=== PATIENT | female | born 2000 | race Caucasian/White ===

== ENCOUNTER 2018-11-19 02:04 | Outpatient (CLI) | payer OTHER ==
[2018-11-19 03:36] VITALS: BP 134/82
[2018-11-19] MEDS ORDERED: VISTARIL PO PRN (04:27)
== END 2018-11-19 04:40 | disposition home or self-care (01) ==
LOC: EDBD → TRG 02:04
PROVIDERS: ATTEND Obstetrics & Gynecology
DX: O47.1 False labor at or after 37 completed weeks of gestation (principal); Z3A.39 39 weeks gestation of pregnancy
CPT/HCPCS: 59025; Q0177

== ENCOUNTER 2018-11-19 09:36 | Inpatient (IN) | payer OTHER ==
[2018-11-19] MEDS ORDERED: LACTATED RINGERS 1,000 ML IV SCH ×2 (11:00→12:00)
[2018-11-19 11:06] LABS: Hematocrit 31.2 % (30.3-42.9); Hemoglobin 10.5 gm/dl (10.1-14.3); Mean Corpuscular HGB Conc 34 % (30-34); Mean Corpuscular Volume 77 fl (79-97); Platelet Count 188 K/mm3 (140-440); Red Blood Count 4.03 M/mm3 (3.65-5.03); Red Cell Distribution Width 14.2 % (13.2-15.2)
[2018-11-19 11:30] LABS: Alanine Aminotransferase 12 units/L (7-56); Uric Acid 4.6 mg/dL (3.5-7.6)
[2018-11-19 11:51] LABS: Hematocrit 31.5 % (30.3-42.9); Hemoglobin 10.6 gm/dl (10.1-14.3); Mean Corpuscular HGB Conc 34 % (30-34); Mean Corpuscular Volume 78 fl (79-97); Platelet Count 197 K/mm3 (140-440); Red Blood Count 4.06 M/mm3 (3.65-5.03); Red Cell Distribution Width 14.3 % (13.2-15.2)
[2018-11-19] MEDS ORDERED: XYLOCAINE 2% INFILTRATI ONE (11:55)
[2018-11-19] MEDS ORDERED: MINERAL OIL PO PRN (11:55)
[2018-11-19] MEDS ORDERED: SUBLIMAZE IV PRN (11:55)
[2018-11-19] MEDS ORDERED: AMPICILLIN/NS 2 GM/100 ML 2 GM/100 ML BAG IV ONE (11:55)
[2018-11-19] MEDS ORDERED: BRETHINE SUB-Q PRN (11:55)
[2018-11-19] MEDS ORDERED: ZOFRAN IV PRN (11:55)
[2018-11-19] MEDS ORDERED: PITOCin/NS 20 UNIT/1000ML DRIP 20 UNITS/1,000 ML BAG IV SCH ×2 (12:00→19:52)
--- NOTE | 2018-11-19 12:02 | History and Physical Report ---
History of Present Illness Date of examination: 11/19/18 Date of admission: 11/19/18 10:23 Chief complaint: Laboring @ term History of present illness: EDC Calculations by LMP: 11/24/2018 Past History : 1 Term Births: 0 Premature Births: 0 Living Children: 0 Para: 0 Mult. Births: 0 Prev : 0 Aborta: 0 Elect. Ab: 0 Spont. Ab: 0 Ectopics: 0 Past Medical History: Asthma Past Surgical History: Tonsillectomy Family History Summary: Other family member - Has No Family History of Ovarvian Cancer - Entered On: 10/04/2018 Other family member - Has No Family History of Colon Cancer - Entered On: 10/04/2018 Other family member - Has Family History of Hyperlipidemia - Entered On: 10/04/2018 Other family member - Has Family History of Diabetes - Entered On: 10/04/2018 Other family member - Has Family History Breast Cancer - Entered On: 10/04/2018 Social History: Marital Status: single Children: Occupation: Risk Factors: Smoked Tobacco Use: Never smoker Drug use: no HIV high-risk behavior: low risk Alcohol use: no Past Medical History Surgery (Non-assistant kitchen manager): Tonsillectomy Abnormal PAP: negative Uterine Anomaly: negative Social Hx: Marital Status: single Children: Occupation: Infection History Hx of STD: none HIV Risk Eval: low risk Hepatitis B Risk Eval: low risk Personal hx. of genital herpes: no Genetic History Congenital Heart Defect: Mom: no Nathan Disease: Mom: no Thalassemia Mom: no Neural Tube Defect Mom: no Down's Syndrome Mom: no Himanshu-Sachs Mom: no Sickle Cell Disease/Trait Mom: no Hemophilia Mom: no Muscular Dystrophy Mom: no Cystic Fibrosis Mom: no Hartley Chorea Mom: no Mental Retardation Mom: no Fragile X Mom: no Other Genetic/Chromosomal Disorder Mom: no Child w/other defect Mom: no Active Medications (reviewed today): ALBUTEROL SULFATE 1.25 MG/3ML INHALATION NEBULIZATION SOLUTION (ALBUTEROL SULFATE) ALBUTEROL SULFATE NEBULIZATION SOLUTION (ALBUTEROL SULFATE NEBU) Current Allergies (reviewed today): No known allergies Past History Past Medical History: other (see HPI) Past Surgical History: other (see HPI) TRAPPER ANIMAL History: other (see HPi) Family/Genetic History: other (see HPI) - Obstetrical History Expected Date of Delivery: 11/24/18 Actual Gestation: 39 Week(s) 2 Day(s) : 1 Para: 0 Hx # Term Pregnancies: 0 Number of Pregnancies: 0 Spontaneous Abortions: 0 Induced : 0 Number of Living Children: 0 Medications and Allergies Allergies Allergy/AdvReac Type Severity Reaction Status Date / Time No Known Allergies Allergy Verified 11/19/18 03:40 Active Meds: Active Medications Ephedrine Sulfate (Ephedrine Sulfate) 10 mg IV Q2M PRN PRN Reason: Hypotension Lactated Ringer's (Lactated Ringers) 1,000 mls @ 150 mls/hr IV DIRECT DENILSON Oxytocin/Sodium Chloride (Pitocin/Ns 20 Unit/1000ml Drip) 20 units in 1,000 mls @ 125 mls/hr IV DIRECT EDNILSON Ampicillin Sodium (Ampicillin/Ns 1 Gm/50 Ml) 1 gm in 50 mls @ 100 mls/hr IV Q4HR DENILSON; Protocol Ampicillin Sodium (Ampicillin/Ns 2 Gm/100 Ml) 2 gm in 100 mls @ 100 mls/hr IV ONCE ONE; Protocol Stop: 11/19/18 12:54 Lidocaine (Xylocaine 2%) 20 ml INFILTRATI ONCE ONE Stop: 11/19/18 11:56 Mineral Oil (Mineral Oil) 30 ml PO QHS PRN PRN Reason: Constipation Terbutaline Sulfate (Brethine) 0.25 mg SUB-Q ONCE PRN PRN Reason: Hyperstimulation/Hypertonicity Review of Systems All systems: negative - Vital Signs Vital signs: Vital Signs Pulse BP Pulse Ox 122 H 157/89 98 11/19/18 09:49 11/19/18 09:49 11/19/18 09:49 Temp Pulse Resp BP Pulse Ox 102 H 115/75 92 11/19/18 11:30 11/19/18 11:30 11/19/18 10:18 - Physical Exam Breasts: Positive: normal Cardiovascular: Regular rate Lungs: Positive: Clear to auscultation, Normal air movement Abdomen: Positive: normal appearance, soft Genitourinary (Female): Positive: normal external genitalia, normal perenium Vulva: both: normal Vagina: Positive: normal moisture Uterus: Positive: normal size Anus/Rectum: Positive: normal perianal skin Extremities: Positive: normal Deep Tendon Reflex Grade: Normal +2 - Obstetrical FHR: auscultation normal, category 1 Uterine Contraction Monitor Mode: External Cervical Dilatation: 6 (per RN) Uterine Contraction Pattern: Regular Uterine Tone Measurement Phase: Contraction Uterine Contraction Intensity: Moderate Results Result Diagrams: 11/19/18 Unknown 11/19/18 10:47 Abnormal lab results 11/19/18 11/19/18 11/19/18 Range/Units 10:47 10:47 Unknown WBC 14.9 H 15.5 H (4.5-11.0) K/mm3 MCV 77 L 78 L (79-97) fl MCH 26 L 26 L (28-32) pg Creatinine 0.6 L (0.7-1.2) mg/dL Lactate Dehydrogenase 212 H (91-180) units/L All other labs normal. Assessment and Plan 18 y/o @ 39+1 in active labor (2cms in triage now 6cms), GBS +, anticipate - Patient Problems (1) 39 weeks gestation of Current Visit: Yes Status: Acute (2) Active labor at term Current Visit: Yes Status: Acute Plan to address problem: Admission orders in EMR IVF bolus for epidural Anticipate (3) GBS (group B Streptococcus carrier), +RV culture, currently Current Visit: Yes Status: Acute Plan to address problem: ampicillin q4hrs until delivery
[2018-11-19] MEDS ORDERED: NARCAN 2 MG/2 ML IV PRN (13:12)
--- NOTE | 2018-11-19 13:17 | Anesthesia Consultation ---
Anesthesia Consult and Med Hx Date of service: 11/19/18 - Airway Anesthetic Teeth Evaluation: Good ROM Head & Neck: Adequate Mental/Hyoid Distance: Adequate Mallampati Class: Class II Intubation Access Assessment: Probably Good - Pulmonary Exam CTA: Yes - Cardiac Exam Cardiac Exam: RRR - Pre-Operative Health Status ASA Pre-Surgery Classification: ASA2 Proposed Anesthetic Plan: Epidural - Pulmonary Hx Smoking: No Hx Asthma: Yes (Inh PRN) Hx Respiratory Symptoms: No SOB: No COPD: No Home Oxygen Therapy: No Hx Pneumonia: No Hx Sleep Apnea: No - Cardiovascular System Hx Hypertension: No Hx Coronary Artery Disease: No Hx Heart Attack/AMI: No Hx Angina: No Hx Percutaneous Transluminal Coronary Angioplasty (PTCA): No Hx Cardia Arrhythmia: No Hx Pacemaker: No Hx Internal Defibrillator: No Hx Valvular Heart Disease: No Hx Heart Murmur: No Hx Peripheral Vascular Disease: No - Central Nervous System Hx Neuromuscular Disorder: No Hx Seizures: No CVA: No Hx Back Pain: No Hx Psychiatric Problems: No - Gastrointestinal Hx Ulcer: No Hx Gastroesophageal Reflux Disease: Yes - Endocrine Hx Renal Disease: No Hx End Stage Renal Disease: No Hx Cirrhosis: No Hx Liver Disease: No Hx Insulin Dependent Diabetes: No Hx Non-Insulin Dependent Diabetes: No Hx Thyroid Disease: No Hx Hypothyroidism: No Hx Hyperthyroidism: No - Hematic Hx Anemia: No Hx Sickle Cell Disease: No - Other Systems Hx Alcohol Use: No Hx Substance Use: No Hx Cancer: No Hx Obesity: Yes (BMI 31)
[2018-11-19 13:19] LABS: Anisocytosis 1+; Basophils % (Manual) 0 % (0.0-1.8); Eosinophils % (Manual) 0 % (0.0-4.3); Ovalocytes Few; Total Cells Counted 100
[2018-11-19 13:20] LABS: Platelet Estimate Consistent w Auto
[2018-11-19] MEDS ORDERED: MARCAINE 0.25% INFILTRATI ONE (13:45)
[2018-11-19] MEDS ORDERED: fentaNYL-BUPIV 2 MCG/ML-0.125% 200 MCG/100 ML BAG EPIDURAL SCH (14:00)
--- NOTE | 2018-11-19 14:28 | Progress Note ---
Assessment and Plan Pt comfortable s/p epidural, SVE 9.5 after BBOW arom's clear. Continue current management, anticipate . Pelvis feels adequate - Patient Problems (1) 39 weeks gestation of Current Visit: Yes Status: Acute (2) Active labor at term Current Visit: Yes Status: Acute (3) GBS (group B Streptococcus carrier), +RV culture, currently Current Visit: Yes Status: Acute Subjective - Subjective Date of service: 11/19/18 Principal diagnosis: IUP @ 39+2, active labor Interval history: EDC Calculations by LMP: 11/24/2018 Past History : 1 Term Births: 0 Premature Births: 0 Living Children: 0 Para: 0 Mult. Births: 0 Prev : 0 Aborta: 0 Elect. Ab: 0 Spont. Ab: 0 Ectopics: 0 Past Medical History: Asthma Past Surgical History: Tonsillectomy Family History Summary: Other family member - Has No Family History of Ovarvian Cancer - Entered On: 10/04/2018 Other family member - Has No Family History of Colon Cancer - Entered On: 10/04/2018 Other family member - Has Family History of Hyperlipidemia - Entered On: 10/04/2018 Other family member - Has Family History of Diabetes - Entered On: 10/04/2018 Other family member - Has Family History Breast Cancer - Entered On: 10/04/2018 Social History: Marital Status: single Children: Occupation: Risk Factors: Smoked Tobacco Use: Never smoker Drug use: no HIV high-risk behavior: low risk Alcohol use: no Past Medical History Surgery (Non-rn camp): Tonsillectomy Abnormal PAP: negative Uterine Anomaly: negative Social Hx: Marital Status: single Children: Occupation: Infection History Hx of STD: none HIV Risk Eval: low risk Hepatitis B Risk Eval: low risk Personal hx. of genital herpes: no Genetic History Congenital Heart Defect: Mom: no Nathan Disease: Mom: no Thalassemia Mom: no Neural Tube Defect Mom: no Down's Syndrome Mom: no Himanshu-Sachs Mom: no Sickle Cell Disease/Trait Mom: no Hemophilia Mom: no Muscular Dystrophy Mom: no Cystic Fibrosis Mom: no Martina Chorea Mom: no Mental Retardation Mom: no Fragile X Mom: no Other Genetic/Chromosomal Disorder Mom: no Child w/other defect Mom: no Active Medications (reviewed today): ALBUTEROL SULFATE 1.25 MG/3ML INHALATION NEBULIZATION SOLUTION (ALBUTEROL SULFATE) ALBUTEROL SULFATE NEBULIZATION SOLUTION (ALBUTEROL SULFATE NEBU) Current Allergies (reviewed today): No known allergies Patient reports: no new complaints (comfortable s/p epidural) Objective - Vital Signs Vital Signs: Vital Signs - 12hr 11/19/18 11/19/18 11/19/18 09:49 09:51 09:54 Pulse Rate 96 H 96 H 95 H Blood Pressure 157/89 O2 Sat by Pulse 98 93 97 Oximetry 11/19/18 11/19/18 11/19/18 09:59 10:04 10:09 Pulse Rate 118 H 99 H 111 H Blood Pressure O2 Sat by Pulse 98 99 98 Oximetry 11/19/18 11/19/18 11/19/18 10:11 10:14 10:18 Pulse Rate 90 104 H 89 Blood Pressure O2 Sat by Pulse 90 99 92 Oximetry 11/19/18 11/19/18 11/19/18 10:28 11:30 12:14 Pulse Rate 113 H 102 H 94 H Blood Pressure 133/88 115/75 137/81 O2 Sat by Pulse Oximetry 11/19/18 11/19/18 11/19/18 12:39 12:41 13:21 Pulse Rate 88 86 127 H Blood Pressure 133/72 124/65 O2 Sat by Pulse 97 Oximetry 11/19/18 11/19/18 11/19/18 13:26 13:27 13:30 Pulse Rate 109 H 108 H 108 H Blood Pressure 147/72 136/71 O2 Sat by Pulse 97 Oximetry 11/19/18 11/19/18 11/19/18 13:31 13:33 13:34 Pulse Rate 115 H 120 H 111 H Blood Pressure 155/74 143/81 O2 Sat by Pulse 96 Oximetry 11/19/18 11/19/18 11/19/18 13:36 13:38 13:41 Pulse Rate 121 H 112 H 122 H Blood Pressure 144/76 155/68 133/62 O2 Sat by Pulse 98 96 Oximetry 11/19/18 11/19/18 11/19/18 13:42 13:45 13:46 Pulse Rate 117 H 123 H 113 H Blood Pressure 122/60 102/52 O2 Sat by Pulse 97 Oximetry 11/19/18 11/19/18 11/19/18 13:47 13:48 13:50 Pulse Rate 103 H 92 H 86 Blood Pressure 121/59 127/62 124/60 O2 Sat by Pulse Oximetry 11/19/18 11/19/18 11/19/18 13:51 13:52 13:54 Pulse Rate 89 82 93 H Blood Pressure 112/59 104/56 O2 Sat by Pulse 97 Oximetry 11/19/18 11/19/18 11/19/18 13:56 13:58 14:00 Pulse Rate 93 H 80 87 Blood Pressure 117/59 115/58 116/56 O2 Sat by Pulse 99 Oximetry 11/19/18 11/19/18 11/19/18 14:02 14:04 14:06 Pulse Rate 93 H 81 88 Blood Pressure 116/59 108/58 109/57 O2 Sat by Pulse Oximetry 11/19/18 11/19/18 11/19/18 14:08 14:11 14:12 Pulse Rate 92 H 75 78 Blood Pressure 107/56 114/56 103/58 O2 Sat by Pulse Oximetry 11/19/18 11/19/18 11/19/18 14:14 14:16 14:17 Pulse Rate 86 117 H 101 H Blood Pressure 113/55 110/78 O2 Sat by Pulse 87 94 Oximetry 11/19/18 11/19/18 11/19/18 14:19 14:20 14:22 Pulse Rate 102 H 102 H 98 H Blood Pressure 108/63 99/55 99/56 O2 Sat by Pulse 98 Oximetry 11/19/18 14:24 Pulse Rate 98 H Blood Pressure 101/59 O2 Sat by Pulse Oximetry - Exam Breasts: normal Cardiovascular: Regular rate Lungs: Clear to auscultation, Normal air movement Abdomen: Present: normal appearance, soft Vulva: both: normal Uterus: Present: normal FHR: category 2 Uterine Contraction Monitor Mode: External Cervical Dilatation: 9.5 (AROM BBOW - clear fluid) Cervical Effacement Percentage: 100 station: 0 Uterine Contraction Frequency (min): 3-5 Uterine Contraction Duration: 60 Uterine Contraction Pattern: Regular Uterine Tone Measurement Phase: Contraction Uterine Contraction Intensity: Strong/Firm Extremities: normal Deep Tendon Reflex Grade: Normal +2 - Labs Labs: Abnormal Labs 11/19/18 11/19/18 11/19/18 10:47 10:47 Unknown WBC 14.9 H 15.5 H MCV 77 L 78 L MCH 26 L 26 L Seg Neuts % (Manual) 92.0 H Lymphocytes % (Manual) 7.0 L Seg Neutrophils # Man 14.3 H Lymphocytes # (Manual) 1.1 L Creatinine 0.6 L Lactate Dehydrogenase 212 H Laboratory Results - last 24 hr 11/19/18 11/19/18 11/19/18 10:47 10:47 10:47 WBC 14.9 H RBC 4.03 Hgb 10.5 Hct 31.2 MCV 77 L MCH 26 L MCHC 34 RDW 14.2 Plt Count 188 Add Manual Diff Total Counted Seg Neutrophils % Seg Neuts % (Manual) Band Neutrophils % Lymphocytes % (Manual) Reactive Lymphs % (Man) Monocytes % (Manual) Eosinophils % (Manual) Basophils % (Manual) Metamyelocytes % Myelocytes % Promyelocytes % Blast Cells % Nucleated RBC % Seg Neutrophils # Man Band Neutrophils # Lymphocytes # (Manual) Abs React Lymphs (Man) Monocytes # (Manual) Eosinophils # (Manual) Basophils # (Manual) Metamyelocytes # Myelocytes # Promyelocytes # Blast Cells # WBC Morphology Hypersegmented Neuts Hyposegmented Neuts Hypogranular Neuts Smudge Cells Toxic Granulation Toxic Vacuolation Dohle Bodies Pelger-Huet Anomaly Jan Rods Platelet Estimate Clumped Platelets Plt Clumps, EDTA Large Platelets Giant Platelets Platelet Satelliting Plt Morphology Comment RBC Morphology Dimorphic RBCs Polychromasia Hypochromasia Poikilocytosis Anisocytosis Microcytosis Macrocytosis Spherocytes Pappenheimer Bodies Sickle Cells Target Cells Tear Drop Cells Ovalocytes Helmet Cells Trinh-Custer Bodies [place] Rings [place] Cells Bite Cells Crenated Cell Elliptocytes Acanthocytes (Spur) Rouleaux Hemoglobin C Crystals Schistocytes Malaria parasites Patrick Bodies Hem Pathologist Commnt Creatinine 0.6 L Estimated GFR > 60 Uric Acid 4.6 AST 18 ALT 12 Lactate Dehydrogenase 212 H Blood Type A POSITIVE Antibody Screen Negative 11/19/18 Unknown WBC 15.5 H RBC 4.06 Hgb 10.6 Hct 31.5 MCV 78 L MCH 26 L MCHC 34 RDW 14.3 Plt Count 197 Add Manual Diff Complete Total Counted 100 Seg Neutrophils % Distribution Technician Seg Neuts % (Manual) 92.0 H Band Neutrophils % 0 Lymphocytes % (Manual) 7.0 L Reactive Lymphs % (Man) 0 Monocytes % (Manual) 1.0 Eosinophils % (Manual) 0 Basophils % (Manual) 0 Metamyelocytes % 0 Myelocytes % 0 Promyelocytes % 0 Blast Cells % 0 Nucleated RBC % Not Reportable Seg Neutrophils # Man 14.3 H Band Neutrophils # 0.0 Lymphocytes # (Manual) 1.1 L Abs React Lymphs (Man) 0.0 Monocytes # (Manual) 0.2 Eosinophils # (Manual) 0.0 Basophils # (Manual) 0.0 Metamyelocytes # 0.0 Myelocytes # 0.0 Promyelocytes # 0.0 Blast Cells # 0.0 WBC Morphology Not Reportable Hypersegmented Neuts Not Reportable Hyposegmented Neuts Not Reportable Hypogranular Neuts Not Reportable Smudge Cells Not Reportable Toxic Granulation Not Reportable Toxic Vacuolation Not Reportable Dohle Bodies Not Reportable Pelger-Huet Anomaly Not Reportable Jan Rods Not Reportable Platelet Estimate Consistent w auto Clumped Platelets Not Reportable Plt Clumps, EDTA Not Reportable Large Platelets Not Reportable Giant Platelets Not Reportable Platelet Satelliting Not Reportable Plt Morphology Comment Not Reportable RBC Morphology Not Reportable Dimorphic RBCs Not Reportable Polychromasia Not Reportable Hypochromasia Not Reportable Poikilocytosis Not Reportable Anisocytosis 1+ Microcytosis Not Reportable Macrocytosis Not Reportable Spherocytes Not Reportable Pappenheimer Bodies Not Reportable Sickle Cells Not Reportable Target Cells Not Reportable Tear Drop Cells Not Reportable Ovalocytes Few Helmet Cells Not Reportable Trinh-Custer Bodies Not Reportable [place] Rings Not Reportable Jonny Cells Not Reportable Bite Cells Not Reportable Crenated Cell Not Reportable Elliptocytes Not Reportable Acanthocytes (Spur) Not Reportable Rouleaux Not Reportable Hemoglobin C Crystals Not Reportable Schistocytes Not Reportable Malaria parasites Not Reportable Patrick Bodies Not Reportable Hem Pathologist Commnt No Creatinine Estimated GFR Uric Acid AST ALT Lactate Dehydrogenase Blood Type Antibody Screen
[2018-11-19] MEDS ORDERED: AMPICILLIN/NS 1 GM/50 ML 1 GM/50 ML BAG IV SCH (15:56)
--- NOTE | 2018-11-19 16:44 | Procedure Note ---
OB Delivery Note - Delivery Date of Delivery: 11/19/18 ( male) Pipeman: CEE HOYT Estimated blood loss: 300cc - Vaginal Delivery presentation: vertex Delivery position: OA Intrapartum events: none Delivery induction: none Delivery augmentation: rupture of membranes Delivery monitor: external FHT, external uterine Route of delivery: Delivery placenta: spontaneous Delivery cord: 3 umbilical vessels Episiotomy: none Delivery laceration: none Anesthesia: epidural Delivery comments: Male infant del over intact perineum, placed skin to skin on mother's abdomen. Cord blood collected. Placenta del intact and complete. Pit to IVF. No lacerations to repair. EBL 300, apgars 8/9. mother and doing well. - Infant A at 1 minute: 8 at 5 minutes: 9 Infant Gender: Male (6#8)
[2018-11-19 19:25] LABS: Bacteria,Urine 1+ /HPF (Negative); Bilirubin,Urine NEG (Negative); Blood,Urine NEG (Negative); Color,Urine Yellow (Yellow); Protein,Urine <15 mg/dL mg/dL (Negative); Urobilinogen,Urine < 2.0 mg/dL (<2.0); WBC,Urine < 1.0 /HPF (0.0-6.0)
[2018-11-19] MEDS ORDERED: MILK OF MAGNESIA PO PRN (19:52)
[2018-11-19] MEDS ORDERED: TUCKS PAD TP PRN (19:52)
[2018-11-19] MEDS ORDERED: TYLENOL PO PRN (19:52)
[2018-11-19] MEDS ORDERED: PHENERGAN PO PRN (19:52)
[2018-11-19] MEDS ORDERED: DULCOLAX PR PRN (19:52)
[2018-11-19] MEDS ORDERED: DERMOPLAST TP PRN (19:52)
[2018-11-19] MEDS ORDERED: SODIUM CHLORIDE FLUSH SYRINGE 10 ML IV NR (19:52)
[2018-11-19] MEDS ORDERED: LANSINOH TP PRN (19:52)
[2018-11-19] MEDS ORDERED: BENADRYL PO PRN (19:52)
[2018-11-19] MEDS: IBUPROFEN PO SCH (21:27)
[2018-11-20] MEDS: IBUPROFEN PO SCH ×4 (05:03→23:54)
[2018-11-20 06:33] LABS: Hematocrit 25.3 % (30.3-42.9); Hemoglobin 8.5 gm/dl (10.1-14.3)
--- NOTE | 2018-11-20 09:03 | Discharge Summary ---
Providers - Providers Date of Admission: 11/19/18 10:23 Date of discharge: 11/20/18 (desires d/c if NB can go) Attending physician: ANTONIA MAX Primary care physician: ANTONIA MAX Hospitalization Reason for admission: active labor Delivery: Episiotomy: none Laceration: none Incision: normal Other procedures: none complications: none Discharge diagnosis: IUP at term delivered [place] baby: male Hospital course: Uncomplicated vaginal delivery Pt and SO sleeping in bed VSS FF below umb Lochia small Perineum intact H&H 11/21 drop r/t blood loss from delivery PO iro started and will provide RX @ d/c Doing well s/p vag delivery P: d/c today with instructions RTO 4 weeks PP care DEPO @ d/c Condition at discharge: Good Disposition: DC-01 TO HOME OR SELFCARE - Discharge Diagnoses (1) (normal spontaneous vaginal delivery) Status: Acute Comment: RTO 4 weeks PP care Plan - Discharge Medications Prescriptions: Docusate Sodium [Colace] 100 mg PO BID PRN #60 capsule PRN Reason: Constipation Lidocain2.5%/Prilocai2.5% [Emla] 5 gm TP PRN #1 tube Ferrous Sulfate [Feosol 325 MG tab] 325 mg PO BID #60 tablet Ibuprofen [Motrin 800 MG tab] 800 mg PO TID PRN #30 tablet PRN Reason: Pain - Provider Discharge Summary Activity: routine, no sex for 6 weeks, no heavy lifting 4 weeks, no strenuous exercise Diet: other (increase iron in diet; dark green vegatables; red meat) Instructions: routine Additional instructions: [] Smoking cessation referral if applicable(refer to patient education folder for contact #) [] Refer to [facility] Booklet Call your doctor immediately for: * Fever > 100.5 * Heavy vaginal bleeding ( >1 pad per hour) * Severe persistent headache * Shortness of breath * Reddened, hot, painful area to leg or breast * Drainage or odor from incision. * Keep incision clean and dry at all times and follow doctor's instructions regarding bathing/showering - Follow up plan Follow up: ANTONIA MAX MD [Primary Care Provider] - 12/20/18 (Congratulations! Please call [phone] to schedule your appointment in 4 weeks and your son's circumcision in 1 week. Bring the EMLA cream with you to his visit do NOT use at home. Call with any headache, blurred vision, chest pain. Take medications as prescribed. Call with any concerns.)
[2018-11-20] MEDS: PRENATAL VITAMIN PO SCH (10:04)
[2018-11-20] MEDS: FEOSOL PO SCH ×2 (10:04→21:49)
[2018-11-20] MEDS: COLACE PO SCH ×2 (10:04→21:49)
[2018-11-20] MEDS ORDERED: BOOSTRIX IM ONE (16:42)
[2018-11-21] MEDS: IBUPROFEN PO SCH ×2 (05:36→12:41)
[2018-11-21] MEDS: PRENATAL VITAMIN PO SCH (11:01)
[2018-11-21] MEDS: FEOSOL PO SCH (11:01)
[2018-11-21] MEDS: COLACE PO SCH (11:02)
[2018-11-21] MEDS ORDERED: BOOSTRIX IM ONE (12:00)
[2018-11-21 14:32] VITALS: BP 125/71
== END 2018-11-21 14:50 | disposition home or self-care (01) | DRG 775 ==
LOC: TRG 09:36 → LD 10:22 → TRG 10:23 → OB 19:18
PROVIDERS: ADMIT Obstetrics & Gynecology; ATTEND Obstetrics & Gynecology
PROC: 10E0XZZ Delivery of Products of Conception, External Approach (ICD-10-PCS; principal; 2018-11-19)
PROC: 3E0R3BZ Introduction of Anesthetic Agent into Spinal Canal, Percutaneous Approach (ICD-10-PCS; 2018-11-19)
PROC: 00HU33Z Insertion of Infusion Device into Spinal Canal, Percutaneous Approach (ICD-10-PCS; 2018-11-19)
PROC: 3E0234Z Introduction of Serum, Toxoid and Vaccine into Muscle, Percutaneous Approach (ICD-10-PCS; 2018-11-20)
DX: O99.824 Streptococcus B carrier state complicating childbirth (principal); Z37.0 Single live birth; K21.9 Gastro-esophageal reflux disease without esophagitis; O99.62 Diseases of the digestive system complicating childbirth; O99.214 Obesity complicating childbirth; Z80.3 Family history of malignant neoplasm of breast; Z83.3 Family history of diabetes mellitus; Z84.89 Family history of other specified conditions; Z90.89 Acquired absence of other organs; Z3A.39 39 weeks gestation of pregnancy; Z23 Encounter for immunization
CPT/HCPCS: 36415; 81001; 82565; 83615; 84450; 84460; 84550; 85007; 85014; 85018; 85025; 85027; 86850; 86900; 86901; 90471; 90715; G0378; J0290; J2590; J3010; J7120